=== PATIENT | male | born 1970 | race Asian ===

== ENCOUNTER → 2020-07-30 12:05 | Outpatient (CLI) | payer OTHER, SELFPAY ==
[2020-07-30] MEDS: COVID-19 VACC #1, MRNA(MOD) 100 MCG/0.5 ML VIAL IM (12:13)
== END ==
PROVIDERS: Visit Provider Internal Medicine
DX: Z23 Encounter for immunization (principal)
CPT/HCPCS: 0011A; 91301

== ENCOUNTER → 2020-08-27 11:59 | Outpatient (CLI) | payer OTHER, SELFPAY ==
[2020-08-27] MEDS: COVID-19 VACC #2, MRNA(MOD) 100 MCG/0.5 ML VIAL IM (12:11)
== END ==
PROVIDERS: Visit Provider Internal Medicine
DX: Z23 Encounter for immunization (principal)
CPT/HCPCS: 0012A; 91301

== ENCOUNTER 2024-02-19 23:03 | Emergency (ER) | payer OTHER, SELFPAY ==
[2024-02-19 23:07] VITALS: BP 128/73; PULSE 69; RESP 16; TEMP 36.3; O2SAT 97; BMI 39.4
--- NOTE | 2024-02-19 23:22 | DI.RAD.S_ITS ---
PROCEDURE: XR KNEE RT 3V INDICATIONS: pain after dragging about 300lbs TECHNIQUE: 3 views of the knee were acquired. COMPARISON: None. FINDINGS: Bones: No fractures or dislocations. No suspicious bony lesions. Soft tissues: Moderate joint effusion. No suspicious soft tissue calcifications. IMPRESSION: No acute osseous abnormality. Moderate joint effusion. If pain persists with conservative management, consider repeat x-ray in 10-14 days or cross-sectional imaging. Dictated by: Jean Stearns M.D. on 02/20/2024 at 0:17 Approved by: Jean Stearns M.D. on 02/20/2024 at 0:17
[2024-02-20 01:11] VITALS: PULSE 74
--- NOTE | 2024-02-20 02:16 | ED.LOWEXIN ---
HPI - Extremity Injury (Lower) General Chief Complaint: Extremity Injury, Lower Stated Complaint: rt knee injury Time Seen by Provider: 02/20/24 02:16 Source: patient and sign language interpreter Mode of arrival: Ambulatory Limitations: language barrier (used interperter) History of Present Illness HPI Narrative: 54-year-old male presents with complaint of right knee pain, patient was squatting down pulling been towards him that was very heavy when he felt sort of a pop or something break in his knee. He states pain was sort of gradually worsening over time over several hours and has been persistent. More painful to flex the knee but patient is able to. Does not appreciate any swelling. Describes the pain is all throughout the knee with no specific area of localization. No warmth or other skin changes noted. Patient denies other injuries in the past, denies any prior surgeries. Has not had similar symptoms in the past. No reported drug allergies. Patient used language line initially but deferred during additional evaluation and preferred to use family at bedside. Related Data Allergies Allergy/AdvReac Type Severity Reaction Status Date / Time No Known Allergies Allergy Verified 02/19/24 23:23 Review of Systems Review of Systems ROS Unobtainable: All systems reviewed & are unremarkable except as noted in HPI and below Patient History Social History Smoking Status: Former smoker Smoking Status: Former smoker alcohol intake frequency: holidays/special occasions only Substance Use Type: does not use Exam Narrative Exam Narrative: GENERAL: Alert and oriented x three, mild distress. HEENT: Head normocephalic, atraumatic, EOMI, pupils reactive, face symmetric, moist mucous membranes NECK: Supple, full range of motion EXTREMITIES: Normal range of motion, no clubbing or edema. Neurovascularly intact. Nontender to palpation, no significant swelling right compared to left. Patient does not have any joint laxity with anterior-posterior drawer, does have increased pain with valgus force on knee. Negative compression test. No warmth, erythema or other skin changes. Patient did ambulate into the department appears uncomfortable but able to walk. NEUROLOGICAL: Cranial nerves II through XII grossly intact. Moving all extremities SKIN: Warm, dry, no petechiae, no rashes or lesions. Initial Vital Signs Initial Vital Signs: Vital Signs Temperature 97.4 F L 02/19/24 23:07 Pulse Rate 69 02/19/24 23:07 Respiratory Rate 16 02/19/24 23:07 Blood Pressure 128/73 02/19/24 23:07 Pulse Oximetry 97 02/19/24 23:07 Oxygen Delivery Method Room Air 02/19/24 23:07 Course Orders Ordered: ED Orders 02/19/24 23:22 XR knee RT 3V Stat Discontinued Medications Ibuprofen (Ibuprofen 400 Mg Tablet) 800 mg PO NOW ONE Stop: 02/20/24 02:36 Last Admin: 02/20/24 02:40 Dose: 800 mg Vital Signs Vital signs: Vital Signs - 8 hr 02/19/24 23:07 02/20/24 01:11 02/20/24 02:57 Temperature 97.4 F L 97.6 F Pulse Rate 69 74 Pulse Rate [Right Dorsalis Pedis] 74 Respiratory Rate 16 18 Blood Pressure 128/73 126/70 Pulse Oximetry 97 98 Oxygen Delivery Method Room Air Room Air MDM - Extremity Injury (Lower) Imaging Data Extremity x-ray #1: Radiologist's Impression: J Luis Zambrnao??54??M??1970 ? Allergy/Adv: No Known Allergies Close Knee X-Ray (Signed) Jean Stearns - 02/19/24 [address] [address] XRay Report Signed Patient: J Luis Zambrano MR#: [id number] : 1970 Acct:[id number] Age/Sex: 54 / M Date of Service: 02/19/24 Loc: ED Accession Number: [id number] Procedure: XR knee RT 3V Ordering Provider: Ina Herbert D.O. PROCEDURE: XR KNEE RT 3V INDICATIONS: pain after dragging about 300lbs TECHNIQUE: 3 views of the knee were acquired. COMPARISON: None. FINDINGS: Bones: No fractures or dislocations. No suspicious bony lesions. Soft tissues: Moderate joint effusion. No suspicious soft tissue calcifications. IMPRESSION: No acute osseous abnormality. Moderate joint effusion. If pain persists with conservative management, consider repeat x-ray in 10-14 days or cross-sectional imaging. Dictated by: Jean Stearns M.D. on 02/20/2024 at 0:17 Approved by: Jean Stearns M.D. on 02/20/2024 at 0:17 MDM Narrative Medical decision making narrative: 54-year-old male who was squatting with knees flexed pulling a very heavy about 300 lb been towards himself when felt sort of a pop and had gradually worsening pain in his right knee. On exam patient has increased pain with valgus force. Joint laxity testing appreciated otherwise appropriate exam. Right knee x-ray shows no acute osseous abnormality. Does show moderate joint effusion. Plan for knee immobilizer, Tylenol/ibuprofen and decreased activity. Discussed follow-up and return precautions. L and I paperwork was filled out. Discharge Plan Departure Patient Disposition: Home Clinical Impression: Right knee sprain, Effusion of knee joint right Instructions: DI for Knee Sprain Activity Restrictions/Additional Instructions: Please follow-up in 10 days check if your symptoms call the number on your L and I paperwork to set up follow-up. You can take acetaminophen up to a 1000 mg every 6 hours and/or ibuprofen up to 600 mg every 6 hours as needed for pain. You may weightbear as tolerated, use crutches as needed. Elevated affected body part to decrease swelling. OK to use ice pack on the affected body part. Use for 15-20 minutes each time, for 5-6x per day. If you develop worsening pain, numbness, tingling, discoloration of the affected body part, adjust the knee immobilizer, and either see your doctor for an urgent re-assessment, or return to the Emergency Department. Return to the Emergency Department for any new or worsening symptoms. Stand Alone Forms: Patient Portal/API, Work Release Note
[2024-02-20] MEDS: IBUPROFEN 400 MG TABLET 800 MG PO (02:40)
[2024-02-20 02:57] VITALS: BP 126/70; PULSE 74; RESP 18; TEMP 36.4; O2SAT 98
== END 2024-02-20 02:59 | disposition home or self-care (01) ==
PROVIDERS: Emergency Provider Emergency Medicine
DX: S83.91XA Sprain of unspecified site of right knee, initial encounter (principal); M25.461 Effusion, right knee; X58.XXXA Exposure to other specified factors, initial encounter
CPT/HCPCS: 73562; 99283